=== PATIENT | male | born 1990 | race Caucasian/White ===

== ENCOUNTER 2016-12-09 21:03 | Emergency (ER) | payer MEDICAID | END 2016-12-09 22:10 | disposition left against medical advice (07) | LOC: UCCORT 21:03 | DX: H57.8 Other specified disorders of eye and adnexa (principal); Z53.21 Procedure and treatment not carried out due to patient leaving prior to being seen by health care provider ==

== ENCOUNTER 2016-12-10 12:03 | Emergency (ER) | payer MEDICAID, OTHER ==
[2016-12-10 13:49] VITALS: BP 110/70
[2016-12-10] MEDS ORDERED: BSS OPTH.SOL* BTL OPHTHALMIC ONE (14:41)
[2016-12-10] MEDS ORDERED: Fluorescein Sodium TOPICAL* 1 MG TEST OPHTHALMIC ONE (14:41)
[2016-12-10] MEDS ORDERED: Tetracaine 0.5% OPTH.SOL 4 ML* 1 DROP BTL RIGHT EYE ONE (14:41)
--- NOTE | 2016-12-10 14:48 | UC ---
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-concerned about the possibility of flash burn has taken ibuprofen without effect - History of Current Complaint Chief Complaint: UCEye Stated Complaint: RIGHT EYE INJURY Time Seen by Provider: 12/10/16 14:28 Hx Obtained From: Patient - Allergies/Home Medications Allergies/Adverse Reactions: Allergies Allergy/AdvReac Type Severity Reaction Status Date / Time Benzoyl Peroxide Allergy Rash, Verified 12/10/16 13:42 Swelling, Difficulty Breathing Home Medications: Home Medications NK [No Home Medications Reported] 12/10/16 [History Confirmed 12/10/16] PMH/Surg Hx/FS Hx/Imm Hx Previously Healthy: Yes Endocrine History Of: Denies: Diabetes, Thyroid Disease Cardiovascular History Of: Denies: Cardiac Disorders Respiratory History Of: Reports: Asthma - Surgical History Surgical History: None - Family History Known Family History: Negative: Cardiac Disease, Hypertension, Diabetes - Social History Occupation: Employed Full-time Lives: With Family Alcohol Use: Occasionally Substance Use Type: Marijuana Substance Use Comment - Amount & Last Used: smoked today Smoking Status (MU): Never Smoked Tobacco Type: Cigarettes Amount Used/How Often: 1/2ppd Review of Systems Constitutional: Negative Skin: Negative Eyes: Drainage, Eye Redness, Photophobia ENT: Negative Respiratory: Negative Cardiovascular: Negative Gastrointestinal: Negative Genitourinary: Negative Motor: Negative Neurovascular: Negative Musculoskeletal: Negative Neurological: Negative Psychological: Negative All Other Systems Reviewed And Are Negative: Yes Physical Exam Triage Information Reviewed: Yes Appearance: No Pain Distress, Well-Nourished Vital Signs: Initial Vital Signs Temp 97.9 F 12/10/16 13:43 Pulse 103 12/10/16 13:43 Resp 18 12/10/16 13:43 BP 110/70 12/10/16 13:43 Pulse Ox 97 12/10/16 13:43 Vital Signs Reviewed: Yes Eyes: Positive: Conjunctiva Inflamed - right, Other: - right eye when observed under fluorisciene no abrasions or foreign bodies, severe inflammation throughout conjunctiva Neck: Positive: No Lymphadenopathy Respiratory: Positive: Lungs clear, Normal breath sounds, No respiratory distress, No accessory muscle use Cardiovascular: Positive: RRR, No Murmur, Pulses Normal Abdomen Description: Positive: Nontender, Soft Bowel Sounds: Positive: Present Musculoskeletal Exam: Normal Neurological Exam: Normal Psychological Exam: Normal Skin Exam: Normal Eye Complaint Course/Dx - Course Course Of Treatment: exam completed. due to amouint of eye pain, changes in vision will send to [facility] for opthamology exam - Differential Dx/Diagnosis Differential Diagnosis/HQI/PQRI: Corneal Abrasion, Orbital Cellulitis, Other - corneal flashburn, iririts Provider Diagnoses: right eye pain Discharge - Discharge Plan Condition: Stable Disposition: [facility] Referrals: Concetta Bhatia MD [Primary Care Provider] -
== END 2016-12-10 15:22 | disposition left against medical advice (07) ==
LOC: UCCORT 12:03
DX: H57.11 Ocular pain, right eye (principal); J45.909 Unspecified asthma, uncomplicated; F12.90 Cannabis use, unspecified, uncomplicated; Z72.0 Tobacco use
CPT/HCPCS: 99213; A9270-GY; G0463